=== PATIENT | male | born 1960 | race Caucasian/White ===

== ENCOUNTER 2017-07-05 09:57 | Emergency (ER) | payer OTHER ==
[~2017-07-05] VITALS: Ht 167.6 cm; Wt 62.0 kg
[~2017-07-05 09:57] MED LIST: TRAM50TA PO
[2017-07-05 10:22] VITALS: BP 171/84; PULSE 72; RESP 20; TEMP 97.7; O2SAT 98
[2017-07-05] MEDS ORDERED: SODIUM CHLOR 0.9% 1000 ML INJ 1,000 ML IV SCH (11:13)
[2017-07-05] MEDS ORDERED: METOCLOPRAMIDE HCL 10 MG/2 ML VIAL IV PUSH ONE (11:15)
[2017-07-05] MEDS ORDERED: SODIUM CHLORIDE 0.9% FLUSH 10 ML FLUSH IV FLUSH PRN (11:15)
[2017-07-05] MEDS ORDERED: MORPHINE SULFATE 4 MG/ML INJ IV PUSH ONE (11:15)
--- NOTE | 2017-07-05 11:21 | PD ---
HPI Chief Complaint: GI Complaint Time Seen by Provider: 11:03 Travel History International Travel<30 days: No Contact w/Intl Traveler<30days: No Traveled to known affect area: No History of Present Illness HPI 56-year-old male presents to the emergency department for evaluation of right- sided abdominal pain. Patient has a colostomy since January 2016 for diverticulitis with abscess. Patient states that he had some drainage from his rectum yesterday which is abnormal for him. He then reported abdominal pain. The abdominal pain resolved. He states that during the night, he had empty his colostomy bag 4 times. He change the bag at 630 this morning has not had any drainage since which is abnormal for him. He states he also had some rectal drainage this morning and then started with the abdominal pain on the right side again. He states the pain is 7/10, aching and cramping. He states it started the epigastric region and now is in the entire right side abdomen. He denies any fevers or chills. No chest pain or shortness of breath. He denies any vomiting. He denies any other abdominal surgeries. His surgery was done in [place]. He is not currently established with a global account manager. No exacerbating or alleviating factors. Moderate severity. Patient states that he started drinking alcohol heavily. He states he has not drank in the past week, but was drinking a pint to a pint and a half of rum daily. [facility] Past Medical History Diminished Hearing: No Hypertension: Yes Tetanus Vaccination: < 5 Years Influenza Vaccination: No ?: Not Past Surgical History Other Surgery: Yes (COLOSTOMY 2015 FROM DIVERTICULITIS) Social History Alcohol Use: Yes Tobacco Use: Yes (/2 PPD) Substance Use: Yes (MARIJUANA) Allergies-Medications (Allergen,Severity, Reaction): Coded Allergies: No Known Allergies (Unverified Allergy, Unknown, 07/05/17) Reported Meds & Prescriptions Reported Meds & Active Scripts Active No Active Prescriptions or Reported Medications Review of Systems Except as stated in HPI: all other systems reviewed are Neg Physical Exam Narrative GENERAL: Well-nourished, well-developed male patient, afebrile. SKIN: Focused skin assessment warm/dry. HEAD: Normocephalic. Atraumatic EYES: No scleral icterus. No injection or drainage. NECK: Supple, trachea midline. No JVD or lymphadenopathy. CARDIOVASCULAR: Regular rate and rhythm without murmurs, gallops, or rubs. RESPIRATORY: Breath sounds equal bilaterally. No accessory muscle use. Lung sounds are clear to auscultation peer GASTROINTESTINAL: Abdomen soft and nondistended. Patient's colostomy to left abdomen. Stoma is pink. There is no drainage in the colostomy bag. He has tenderness to epigastric region, right upper and right lower quadrants to palpation. MUSCULOSKELETAL: No cyanosis, or edema. BACK: Nontender without obvious deformity. No CVA tenderness. Data Data Last Documented VS Vital Signs Date Time Temp Pulse Resp B/P (MAP) Pulse Ox O2 Delivery O2 Flow Rate FiO2 07/05/17 10:22 97.7 72 20 171/84 (113) 98 Orders Orders Complete Blood Count With Diff (07/05/17 11:13) Comprehensive Metabolic Panel (07/05/17 11:13) Lipase (07/05/17 11:13) Prothrombin Time / Inr (Pt) (07/05/17 11:13) Act Partial Throm Time (Ptt) (07/05/17 11:13) Urinalysis - C+S If Indicated (07/05/17 11:13) Ct Abd/Pel W Iv Contrast(Rout) (07/05/17 11:13) Iv Access Insert/Monitor (07/05/17 11:13) Ecg Monitoring (07/05/17 11:13) Oximetry (07/05/17 11:13) Morphine Inj (Morphine Inj) (07/05/17 11:15) Sodium Chlor 0.9% 1000 Ml Inj (Ns 1000 M (07/05/17 11:13) Sodium Chloride 0.9% Flush (Ns Flush) (07/05/17 11:15) Metoclopramide Inj (Reglan Inj) (07/05/17 11:15) Electrocardiogram (07/05/17 ) Diatrizoate Liq ( Gastrodavid Liq) (07/05/17 12:05) Oral Contrast - Adult (07/05/17 12:06) Iohexol 350 Inj (Omnipaque 350 Inj) (07/05/17 13:49) Labs Laboratory Tests Test 07/05/17 11:15 07/05/17 11:28 Urine Color COLORLESS Urine Turbidity CLEAR Urine pH 7.0 Urine Specific [place] 1.003 Urine Protein NEG mg/dL Urine Glucose (UA) NEG mg/dL Urine Ketones NEG mg/dL Urine Occult Blood NEG Urine Nitrite NEG Urine Bilirubin NEG Urine Urobilinogen LESS THAN 2.0 MG/DL Urine Leukocyte Esterase NEG Urine RBC LESS THAN 1 /hpf Urine WBC 1 /hpf Microscopic Urinalysis Comment CULT NOT INDICATED White Blood Count 7.8 TH/MM3 Red Blood Count 4.83 MIL/MM3 Hemoglobin 15.3 GM/DL Hematocrit 44.0 % Mean Corpuscular Volume 91.1 FL Mean Corpuscular Hemoglobin 31.7 PG Mean Corpuscular Hemoglobin Concent 34.8 % Red Cell Distribution Width 13.3 % Platelet Count 278 TH/MM3 Mean Platelet Volume 7.8 FL Neutrophils (%) (Auto) 71.6 % Lymphocytes (%) (Auto) 21.0 % Monocytes (%) (Auto) 5.9 % Eosinophils (%) (Auto) 0.8 % Basophils (%) (Auto) 0.7 % Neutrophils # (Auto) 5.6 TH/MM3 Lymphocytes # (Auto) 1.6 TH/MM3 Monocytes # (Auto) 0.5 TH/MM3 Eosinophils # (Auto) 0.1 TH/MM3 Basophils # (Auto) 0.1 TH/MM3 CBC Comment DIFF FINAL Differential Comment Prothrombin Time 10.0 SEC Prothromb Time International Ratio 1.0 RATIO Activated Partial Thromboplast Time 24.5 SEC Blood Urea Nitrogen 9 MG/DL Creatinine 0.83 MG/DL Random Glucose 110 MG/DL Total Protein 7.4 GM/DL Albumin 3.8 GM/DL Calcium Level 8.8 MG/DL Alkaline Phosphatase 76 U/L Aspartate Amino Transf (AST/SGOT) 15 U/L Alanine Aminotransferase (ALT/SGPT) 24 U/L Total Bilirubin 0.5 MG/DL Sodium Level 137 MEQ/L Potassium Level 4.2 MEQ/L Chloride Level 102 MEQ/L Carbon Dioxide Level 26.1 MEQ/L Anion Gap 9 MEQ/L Estimat Glomerular Filtration Rate 97 ML/MIN Lipase 232 U/L [facility] Medical Decision Making Medical Screen Exam Complete: Yes Emergency Medical Condition: Yes Medical Record Reviewed: Yes Interpretation(s) CT abdomen/pelvis - CONCLUSION: No inflammatory changes are seen within the abdomen or pelvis. Differential Diagnosis bowel obstruction vs. diverticulitis vs. diverticulitis with abscess vs. pancreatitis vs. appendicitis Narrative Course 56-year-old male presents to the emergency department for evaluation of abdominal pain with colostomy and rectal drainage which is abnormal for him. EKG, CBC, CMP, lipase, PTT, PT/INR, UA ordered and pending. CT abdomen/pelvis with p.o. and IV contrast is ordered and pending. Patient is given normal saline 1 L IV bolus, morphine 4 mg IV, Reglan 10 mg IV. EKG shows sinus rhythm, heart rate 80, no acute ST changes. CBC shows no acute abnormality. CMP shows no acute abnormality. Lipase is 232. Coags are unremarkable. UA is negative for acute infection. CT abdomen/pelvis shows no inflammatory changes are seen within the abdomen or pelvis. I discussed results with the patient. He is given a copy of his CT report. He is instructed to follow-up with his surgeon and gastroenterology. He verbalizes agreement. He is to return here for any acute worsening of symptoms. The patient was discharged in stable condition with instructions, including return instructions and follow up instructions. Diagnosis Primary Impression: Abdominal pain Qualified Codes: R10.9 - Unspecified abdominal pain Referrals: [facility] Rectal Specialist Patient Instructions: Abdominal Pain (ED), General Instructions, Narcotic given in the ED Additional Instructions: Follow-up with your surgeon and global account manager. The [facility] is a wonderful resource for primary care provider for the uninsured. Their information is attached. Return to the emergency department for any acute worsening of symptoms. Med/Other Pt SpecificInfo: No Change to Meds Scripts No Active Prescriptions or Reported Meds Disposition: 01 DISCHARGE HOME Condition: Stable PierreLary July 05, 2017 11:21
[2017-07-05 11:51] LABS: BILIRUBIN, URINE NEG (NEG); BLOOD, URINE NEG (NEG); GLUCOSE,URINE NEG (NEG); KETONE, URINE NEG (NEG); NITRITE,URINE NEG (NEG); URINE COLOR COLORLESS (YELLW/STRAW); URINE LEUKOCYTE ESTERASE NEG (NEG)
[2017-07-05 11:53] LABS: AUTOMATED NEUTROPHIL # 5.6 TH/MM3 (1.8-7.7); BASOPHIL # 0.1 TH/MM3 (0-0.2); BASOPHIL % 0.7 % (0.0-2.0); EOSINOPHIL # 0.1 TH/MM3 (0-0.4); EOSINOPHIL % 0.8 % (0.0-4.0); HEMOGLOBIN 15.3 GM/DL (13.0-17.0); LYMPHOCYTE # 1.6 TH/MM3 (1.0-4.8); MEAN CELL VOLUME 91.1 FL (80.0-100.0); MEAN CORPUSCULAR HEMOGLOBIN 31.7 PG (27.0-34.0); MEAN CORPUSCULAR HGB CONC 34.8 % (32.0-36.0); MEAN PLATELET VOLUME 7.8 FL (7.0-11.0); MONO % 5.9 % (0.0-8.0); MONOCYTE # 0.5 TH/MM3 (0-0.9); NEUT % 71.6 % (16.0-70.0); PLATELET COUNT 278 TH/MM3 (150-450); RED BLOOD COUNT 4.83 MIL/MM3 (4.50-5.90); RED CELL DISTRIBUTION WIDTH 13.3 % (11.6-17.2); WHITE BLOOD COUNT 7.8 TH/MM3 (4.0-11.0)
[2017-07-05] MEDS ORDERED: DIATRIZOATE MEGLUM/DIATRIZOATE SOD 9 ML CUP ONE (12:05)
[2017-07-05 12:07] LABS: ALBUMIN 3.8 GM/DL (3.4-5.0); AST (GOT) 15 U/L (15-37); BICARBONATE 26.1 MEQ/L (21.0-32.0); BLOOD UREA NITROGEN 9 MG/DL (7-18); CALCIUM 8.8 MG/DL (8.5-10.1); CHLORIDE 102 MEQ/L (98-107); CREATININE 0.83 MG/DL (0.60-1.30); GLOMERULAR FILTRATION RATE 97 ML/MIN (>89); GLUCOSE,RANDOM 110 MG/DL (74-106); SODIUM (NA) 137 MEQ/L (136-145)
[2017-07-05 12:08] LABS: ALT (GPT) 24 U/L (12-78)
[2017-07-05 12:10] LABS: ALKALINE PHOSPHATASE 76 U/L (45-117); TOTAL BILIRUBIN ADULT 0.5 MG/DL (0.2-1.0); TOTAL PROTEIN 7.4 GM/DL (6.4-8.2)
[2017-07-05] MEDS ORDERED: IOHEXOL 350 MG/ML 10 ML VIAL (for RAD DIAG) IVCONTRAST ONE (13:49)
--- NOTE | 2017-07-05 14:01 | RADRPT ---
EXAM DATE/TIME: 07/05/2017 13:38 [place] COMPARISON: No previous studies available for comparison. INDICATIONS : Rectal drainage, abdominal pain. IV CONTRAST: 93 cc Omnipaque 350 (iohexol) IV ORAL CONTRAST: No oral contrast ingested. RADIATION DOSE: 4.86 CTDIvol (mGy) MEDICAL HISTORY : Hypertension. SURGICAL HISTORY : Colostomy. ENCOUNTER: Initial ACUITY: 1 day PAIN SCALE: 5/10 LOCATION: abdomen TECHNIQUE: Volumetric scanning of the abdomen and pelvis was performed. Using automated exposure control and ad justment of the mA and/or kV according to patient size, radiation dose was kept as low as reasonably achievable to obtain optimal diagnostic quality images. DICOM format image data is available electro nically for review and comparison. FINDINGS: The osseous structures are intact. Prostatic calcifications are noted. Lung bases are clear. No pleur al or pericardial effusions. Liver, gallbladder, kidneys, spleen, pancreas, adrenal glands are unrema rkable. Stomach unremarkable. Urinary bladder is unremarkable. There is a staple line identified at t he level of the rectosigmoid colon and the patient has a colostomy in the left lower quadrant. There are a few diverticuli in the descending colon. The appendix is normal. No adenopathy or aneurysm. The re no inflammatory changes seen. CONCLUSION: No inflammatory changes are seen within the abdomen or pelvis. Lopez Hedrick MD on July 05, 2017 at 13:56 Board Certified Radiologist. This report was verified electronically.
--- NOTE | 2017-07-06 22:50 | EKG ---
Date Performed: 07/05/2017 Time Performed: 11:53:12 PTAGE: 56 years EKG: Sinus rhythm MARKED LEFT AXIS DEVIATION INCOMPLETE RIGHT BUNDLE BRANCH BLOCK ABNORMAL ECG NO PREVIOUS TRACING DOCTOR: Derek Sherman Interpretating Date/Time 07/06/2017 22:48:12
== END 2017-07-05 14:28 | disposition home or self-care (01) ==
LOC: NEPC 09:57
DX: R10.9 Unspecified abdominal pain (principal); F12.90 Cannabis use, unspecified, uncomplicated; F17.200 Nicotine dependence, unspecified, uncomplicated; R94.31 Abnormal electrocardiogram [ECG] [EKG]
CPT/HCPCS: 74177; 80053; 81001; 83690; 85025; 85610; 85730; 93005; 96361; 96374; 96375; 99285; J2270; J2765; J7030; Q9963; Q9967